=== PATIENT | female | born 1990 ===

== ENCOUNTER 2016-10-26 14:26 | Emergency (ER) | payer SELFPAY ==
[2016-10-26 14:39] VITALS: BP 92/59; PULSE 70; RESP 16; TEMP 98.7; O2SAT 100
--- NOTE | 2016-10-26 15:53 | ED PDOC ---
HPI: Skin/Bite Injury Time Seen by Provider: 10/26/16 15:38 Chief Complaint (Nursing): Abnormal Skin Integrity History Per: Patient Onset/Duration Of Symptoms: Days (2) Current Symptoms Are (Timing): Still Present Location Of Injury: Right: Arm, Forearm, Thigh, Left: Arm, Forearm, Thigh, Anterior: Abdomen, Chest, Face, Thigh, Posterior: Back, Thigh Quality Of Symptoms: Itching Severity: Mild Pain Scale Rating Of: 0 Additional Complaint(s): Itchy rash assoc with fever x 2-3 days. Started on face and spread to arms and legs as well as abd and torso. Denies cough or sore throat. No stiff neck Past Medical History Vital Signs: Last Vital Signs Temp 98.7 F 10/26/16 14:35 Pulse 70 10/26/16 14:35 Resp 16 10/26/16 14:35 BP 92/59 L 10/26/16 14:35 Pulse Ox 100 10/26/16 15:55 - Medical History PMH: No Chronic Diseases - Family History Family History: States: Unknown Family Hx - Home Medications Home Medications: Ambulatory Orders Medication Instructions Recorded Cetirizine HCl [Zyrtec] 10 mg PO DAILY #10 capsule 10/26/16 - Allergies Allergies/Adverse Reactions: Allergies Allergy/AdvReac Type Severity Reaction Status Date / Time No Known Allergies Allergy Verified 10/26/16 14:35 Review of Systems Constitutional: Positive for: Fever ENT: Negative for: Throat Pain Respiratory: Negative for: Cough Skin: Positive for: Rash Physical Exam - Reviewed Nursing Documentation Reviewed: Yes Vital Signs Reviewed: Yes - Physical Exam Appears: Positive for: Non-toxic, No Acute Distress Head Exam: Positive for: ATRAUMATIC, NORMAL INSPECTION, NORMOCEPHALIC Skin: Positive for: Warm, Rash (Erythemetous macular papular rash involving arms legs, chest, abd and back. Spares palm and soles.) Eye Exam: Positive for: EOMI, Normal appearance, PERRL ENT: Positive for: Normal ENT Inspection, Other (No Koplick spots). Negative for: Pharyngeal Erythema, Tonsillar Exudate Neck: Positive for: Normal, Painless ROM Cardiovascular/Chest: Positive for: Regular Rate, Rhythm Respiratory: Positive for: CNT, Normal Breath Sounds Gastrointestinal/Abdominal: Positive for: Normal Exam, Bowel Sounds, Soft Back: Positive for: Normal Inspection Extremity: Positive for: Normal ROM Neurologic/Psych: Positive for: Alert, Oriented - Laboratory Results Result Diagrams: 10/26/16 13:55 10/26/16 16:10 - ECG O2 Sat by Pulse Oximetry: 100 Disposition - Clinical Impression Clinical Impression: Viral exanthem - Patient ED Disposition Is Patient to be Admitted: No Counseled Patient/Family Regarding: Studies Performed, Diagnosis, Need For Followup, Rx Given - Disposition Referrals: [facility] [Outside] Disposition: Routine/Home Disposition Time: 17:02 Condition: FAIR Prescriptions: Cetirizine HCl [Zyrtec] 10 mg PO DAILY #10 capsule Instructions: Viral Exanthem (ED) Print Language: CHINESE
[2016-10-26 16:16] LABS: BASO % 0.3 % (0.0-2.0); EOS % 0.9 % (0.0-4.0); HEMOGLOBIN 14.2 g/dL (12.0-16.0); LYMPH % 31.5 % (20.0-40.0); MEAN CELL VOLUME 90.1 fl (81.0-99.0); MEAN CORPUSCULAR HEMOGLOBIN 29.8 pg (27.0-31.0); MEAN CORPUSCULAR HGB CONC 33.1 g/dL (33.0-37.0); MEAN PLATELET VOLUME 8.2 fl (7.2-11.7); MONO # 0.4 K/uL (0.0-0.8); MONO % 12.3 % (0.0-10.0); NEUT # 1.8 K/uL (1.8-7.0); NRBC % 0.3 % (0.0-0.0); RBC 4.78 Mil/uL (3.80-5.20); RED CELL DISTRIBUTION WIDTH 12.5 % (11.5-14.5); WHITE BLOOD COUNT 3.3 K/uL (4.8-10.8)
[2016-10-26 16:47] LABS: ALB/GLOB RATIO 1.3 (1.0-2.1); ALBUMIN 4.3 g/dL (3.5-5.0); ALT/SGPT 36 U/L (9-52); AST/SGOT 32 U/L (14-36); BLOOD UREA NITROGEN 9 mg/dl (7-17); CALCIUM 8.4 mg/dL (8.4-10.2); GFR AFRICAN-AMERICAN > 60; GFR NON-AFRICAN AMERICAN > 60
== END 2016-10-26 17:14 | disposition home or self-care (01) ==
LOC: H.ER 14:26
DX: B09 Unspecified viral infection characterized by skin and mucous membrane lesions (principal)